=== PATIENT | female | born 1935 | race Caucasian/White ===

== ENCOUNTER 2016-10-09 10:43 | Inpatient (IN) | payer OTHER ==
[2016-10-09 13:32] LABS: URINE MICRO REVIEW NEEDED? NO; URINE SOURCE VOIDED
[2016-10-09 13:48] LABS: UR EPITHELIAL CELLS <10 /HPF (<10); URINE BACTERIA 2+ /HPF; URINE RBC TNTC /HPF (<10); URINE WBC TNTC /HPF (<10)
[2016-10-09 13:54] LABS: BILIRUBIN URINE NEGATIVE (NEGATIVE); BLOOD URINE LARGE (NEGATIVE); COLOR BROWN; GLUCOSE URINE NEGATIVE (NEGATIVE); LEUKOCYTES URINE LARGE (NEGATIVE); NITRITE URINE NEGATIVE (NEGATIVE); PH URINE 6.5; PROTEIN URINE 100 mg/dL (NEGATIVE); SP GRAVITY URINE 1.006; TURBIDITY URINE HAZY (CLEAR); UROBILINOGEN URINE NORMAL (NORMAL)
[2016-10-09 14:52] LABS: MANUAL DIFF NEEDED? NO
--- NOTE | 2016-10-09 14:52 | Diag Imaging Result Document ---
PROCEDURE NAME: CHEST-2 VIEWS - 10/09/2016 FRONTAL AND LATERAL CHEST, TWO VIEWS: FINDINGS: The lungs are hyperexpanded. The heart is not enlarged. The pulmonary vessels are small. Mild increased AP diameter to the chest. No pleural effusions. No pneumonia. Nodular density in the midleft lung. IMPRESSION: 1. I believe the patient has emphysema. No pneumonia. 2. Nodular opacity in the midleft lung which is nonspecific. CT or followup film is recommended.
[2016-10-09 15:00] LABS: BASO% 0.3 % (0.0-0.8); EOS# 0.03 X1000 (0.0-0.7); EOS% 0.3 % (0.0-10.0); HEMATOCRIT 36.9 % (37.0-47.0); HEMOGLOBIN 12.5 g/dL (12.0-16.0); IMM GRAN# 0.02 X1000 (0.0-0.04); IMM GRAN% 0.2 % (0.0-0.5); LYMPH# 1.87 X1000 (1.2-3.4); LYMPH% 19.5 % (20.5-51.1); MCH 30.5 PG (27-31); MCHC 33.9 g/dL (33-37); MONO# 0.72 X1000 (0.11-0.59); MONO% 7.5 % (1.7-9.3); NEUT% 72.2 % (42.2-75.2); PLT 226 X1000 (130-400)
--- NOTE | 2016-10-09 15:06 | EKG Report ---
Test Performed on : 10/09/2016 2:56:14 PM Test Reason : hematuria Blood Pressure : / mmHG Vent. Rate : 080 BPM Atrial Rate : 080 BPM P-R Int : 202 ms QRS Dur : 082 ms QT Int : 382 ms P-R-T Axes : 049 013 -07 degrees QTc Int : 440 ms Normal sinus rhythm. Nonspecific ST and T wave abnormality Abnormal ECG No previous ECGs available Confirmed by Randy CERVANTES, Kole Mcgee ([id number]) on 10/09/2016 5:23:41 PM
[2016-10-09 15:13] LABS: INR 1.03; PROTIME 10.9 Seconds (9.2-11.7); PTT 30.9 Seconds (22.0-36.0)
[2016-10-09 15:25] LABS: AGAP 15; ALKALINE PHOSPHATASE 159 U/L (32-104); BUN 8 mg/dL (8-22); CALCIUM 9.3 mg/dL (8.8-10.2); CHLORIDE 96 mmol/L (98-107); COSMO 273; GOT 25 U/L (10-30); GPT 18 U/L (10-36); POTASSIUM 4.1 mmol/L (3.5-5.1); SODIUM 137 mmol/L (136-145); TCO2 26 mmol/L (25-35); TOTAL BILIRUBIN 0.41 mg/dL (0.20-1.00); TOTAL PROTEIN 7.3 g/dL (6.3-8.3)
--- NOTE | 2016-10-09 15:33 | Diag Imaging Result Document ---
PROCEDURE NAME: ABDOMEN/PELVIS W/O CONTRAST - 10/09/2016 CT RENAL STONE SEARCH WITHOUT CONTRAST: A dose-reduction protocol was used. FINDINGS: There is no evidence of hydronephrosis or perinephric edema. There is no renal stone identified. There is mild haziness near the proximal left ureter but this likely relates to nearby vascular structures. There is a 2.1 cm relatively low-density lesion arising exophytically at the lower left kidney, possibly representing a cyst. There is no evidence of bowel obstruction. There is colonic diverticulosis which is most extensive at the sigmoid. There is no indication of diverticulitis. There is no free air. There are possibly faint gallstones or sludge in the dependent portion of the gallbladder. There is no pericholecystic inflammation seen. There are atherosclerotic calcifications noted. There are lumbar spine degenerative changes noted. IMPRESSION: 1. No evidence of renal stone or hydronephrosis. 2. 2.1 cm lesion at lower left kidney, possibly representing a cyst. Follow-up renal ultrasound is recommended. 3. Uncomplicated colonic diverticulosis. No bowel obstruction. No free air. 4. Possible faint gallstones or sludge in the dependent portion of the gallbladder. No pericholecystic inflammation.
--- NOTE | 2016-10-09 16:16 | CONSULTATION ---
DATE OF CONSULTATION: 10/09/2016 CONSULTING PHYSICIAN: Dr. Fraire. REASON FOR CONSULTATION: Gross hematuria. HISTORY OF PRESENT ILLNESS: An 81-year-old female who had presented with sudden onset of gross hematuria, suprapubic tenderness, left sided abdominal pain and mild radiation to the back. She denied fevers chills, nausea, or vomiting. She was seen by Dr. Fraire at the office and was told to come in to be admitted. She reports 1 similar episode in the past like that where she was told she had a "kidney infection." She reports she was not treated with antibiotics but cannot remember for sure. She denies unintentional weight loss, history of recurrent UTIs. PAST MEDICAL HISTORY: 1. Hypertension. 2. Hypothyroidism. 3. Vertigo. 4. GERD. 5. Mitral valve prolapse. 6. MGUS. PAST SURGICAL HISTORY: 1. Multiple skin cancer excisions. 2. Appendectomy. 3. Total hysterectomy. 4. Cystocele repair. 5. Rectocele repair. 6. Lower extremity surgery. ALLERGIES: No known drug allergies. HOME MEDICATIONS: Norvasc, Synthroid, aspirin, Antivert, Toprol-XL, omeprazole, multivitamin, vitamin D. SOCIAL HISTORY: She denies tobacco, alcohol or drug use. FAMILY HISTORY: She denies family history of malignancies. REVIEW OF SYSTEMS: Reviewed 12 systems and negative except as mentioned in HPI. PHYSICAL EXAMINATION: T 97.8 degrees, P 81, BP 134/54.General: No acute distress. Pleasant female. HEENT: Normocephalic, atraumatic. Cardiovascular: Regular rate and rhythm. Pulmonary: Bilateral breath sounds. Abdomen: Scaphoid. Nontender to palpation. No involuntary guarding. She has 2 ventral abdominal scars. : Bladder is nontender to palpation. Lymphatic: No groin lymphadenopathy. Dermatologic: No obvious skin rashes. Neurologic: Alert and oriented x3. Psychiatric: Appropriate mood and affect. PERTINENT LABORATORY DATA: White cell count of 10,000, hematocrit 37, creatinine of 0.5. Urinalysis is positive for blood, leukocytes, white cells and bacteria. IMAGES: None. ASSESSMENT: An 81-year-old female with gross hematuria who has obvious urinary tract infection and could have pyelonephritis given her pain. We discussed not completing full hematuria workup given that it is in the setting of infection. Given her radiation of pain to the left, I recommended obtaining a renal ultrasound. I did see the urine sample that she left in the bathroom and her urine was red but no significant clots at the time of observation. PLAN: 1. Agree with IV fluids and antibiotic treatment. 2. I will order renal ultrasound. Thank you for consultation.
--- NOTE | 2016-10-09 17:11 | HISTORY AND PHYSICAL ---
CHIEF COMPLAINT: Hematuria. HISTORY OF PRESENT ILLNESS: An 81-year-old white female patient was in her usual state of health 3 days ago when patient noticed some blood in the urine but it subsided and then again last night the patient noticed blood in the urine. Urine was red colored. It was getting much more darker progressively. This morning her urine was bloody. There was some blood clot. The patient came to my office. I evaluated the patient. Her urine had gross hematuria with some blood clot. Patient did have some suprapubic pain. She was also complaining of some flank pain. No high- grade fever or chills. She denied any nausea or vomiting. The patient had a similar episode a few years ago. At that time, she was told to have a kidney infection. Patient did not have workup done at that time. Because of her gross hematuria, pain I decided to admit the patient for further care. The patient denied any nosebleed, blood in the stool, gum bleeding, hemoptysis. No bleeding tendency. Denied any nausea or vomiting. No typical chest pain, palpitation, orthopnea, PND. No unusual cough, expectoration, hemoptysis. The patient does have at times vertigo. No runny nose, stuffy nose, sinus drainage. Denied any leg swelling. No joint swelling or redness. No heat or cold intolerance, unquantified weight loss. No focal numbness, tingling, weakness. No further history available at this time. ALLERGIES: No known drug allergy. HOME MEDICATION: Includes patient is on Norvasc, Toprol-XL, Synthroid, aspirin, Antivert, multivitamin, Prilosec. PAST MEDICAL HISTORY: Significant for hypertension, gastritis and reflux disease, hyperlipidemia, hypothyroidism, vertigo, mitral valve prolapse, monoclonal gammopathy. The patient had multiple skin cancer removed, appendectomy, total hysterectomy, cystocele repair, rectocele repair and surgery on lower extremities. SOCIAL HISTORY: Single. Denied alcohol or substance abuse. FAMILY HISTORY: Noncontributory. PHYSICAL EXAMINATION: GENERAL: Elderly white female patient in no acute distress. VITAL SIGNS: Blood pressure 134/54, pulse 81, respirations 16, temperature 97.8 degrees. SKIN: Normal turgor. No rash or petechiae. HEENT: Head atraumatic, normocephalic. [place] conjunctivae. Anicteric sclerae. Extraocular muscle movement normal. Fundus cannot be penetrated. Good oral hygiene. No tonsillopharyngeal congestion or exudate. Ears and nose benign. NECK: Supple. No JVD, thyromegaly or lymphadenopathy. CHEST: Bilateral good air entry present. No rales or rhonchi. CARDIOVASCULAR: S1 and S2 heard. No gallop or thrill. A 2/6 systolic murmur at the apex. ABDOMEN: Soft. No distention. Bowel sounds present. Mild suprapubic tenderness. No guarding or rigidity. EXTREMITIES: No cyanosis, clubbing. No acute DVT. LINE MAINTAINER SECTION: Alert, awake. Able to move all 4 limbs. LAB DATA: Hemoglobin 12.5, hematocrit 36.9, WBC count 9.61, platelet 226,000. PT/INR 1.03, PTT 30.9. Electrolytes were fairly benign. Alkaline phosphatase 159, blood sugar 105. Urinalysis did reveal large amount of blood, too numerous to count WBC and RBC, 2+ bacteria. We did a CT scan of the abdomen and pelvis without contrast which did reveal no evidence of renal stone or hydronephrosis. Possible renal cyst, uncomplicated colonic diverticulosis, possible faint gallstone or sludge in the dependent portion of the gallbladder, no evidence of cholecystitis. Her chest x-ray did reveal COPD, no pneumonia, nodular opacity in the mid left lung which is nonspecific. CT or followup film is recommended. CONSIDERATION: Gross hematuria. Urine did show possible urinary tract infection, possibility of hemorrhagic cystitis cannot be ruled out. Her other problems include hypertension, mitral valve prolapse, history of hyperlipidemia, vertigo, hypothyroidism. Patient does have chronic obstructive pulmonary disease by x-ray. Abnormal chest x-ray. PLAN: Admit the patient. IV hydration. Close observation. IV antibiotics. Overall plan discussed at length with the patient and her daughter and they are in agreement. The patient had renal ultrasound ordered by urologist and will follow those results. Her EKG reveals sinus rhythm, left atrial enlargement, ST-T wave changes in the anterolateral leads which could be nonspecific. Clinically, patient is asymptomatic.
[2016-10-09] MEDS: LEVAQUIN 750 MG/D5W 150 ML IV SCH (17:25)
[2016-10-09] MEDS: NS 1,000 ML IV SCH (17:26)
--- NOTE | 2016-10-09 18:07 | Diag Imaging Result Document ---
PROCEDURE NAME: US RENAL 2 (RETROPER) COMPLETE - 10/09/2016 BILATERAL RENAL ULTRASOUND: FINDINGS: The right kidney measures 9.6 x 3.1 x 4.3 cm in size. The left kidney measures 10.4 x 4.2 x 4.3 cm in size. There is no hydronephrosis identified. There is no renal stone identified. There is a 2.5 cm cystic structure at the lower left kidney. While and it is difficult to determine with certainty that this arises from the left kidney, this likely corresponds with the lesion seen on the earlier CT abdomen and pelvis, compatible with renal cyst. There is no solid- appearing renal mass identified. Images of the urinary bladder demonstrate no lesion. IMPRESSION: 1. A 2.5 cm left renal cyst. 2. No other visible abnormality. 3. No hydronephrosis.
[2016-10-09] MEDS: TOPROL XL PO SCH (21:55)
[2016-10-10 06:10] LABS: MANUAL DIFF NEEDED? NO
[2016-10-10 06:18] LABS: BASO% 0.5 % (0.0-0.8); EOS# 0.06 X1000 (0.0-0.7); EOS% 0.8 % (0.0-10.0); HEMATOCRIT 35.8 % (37.0-47.0); HEMOGLOBIN 12.1 g/dL (12.0-16.0); LYMPH% 29.8 % (20.5-51.1); MCH 30.5 PG (27-31); MCHC 33.8 g/dL (33-37); MCV 90.2 FL (81-99); MONO# 0.87 X1000 (0.11-0.59); MONO% 11.3 % (1.7-9.3); MPV 10.4 FL (7.4-10.4); NEUT% 57.6 % (42.2-75.2); PLT 224 X1000 (130-400); RBC 3.97 XMIL (4.2-5.4)
[2016-10-10 06:27] LABS: AGAP 14; ALBUMIN 3.9 g/dL (3.5-5.0); ALKALINE PHOSPHATASE 141 U/L (32-104); BUN 7 mg/dL (8-22); CALCIUM 8.9 mg/dL (8.8-10.2); CHLORIDE 97 mmol/L (98-107); COSMO 268; GOT 19 U/L (10-30); GPT 15 U/L (10-36); POTASSIUM 3.7 mmol/L (3.5-5.1); SODIUM 135 mmol/L (136-145); TCO2 24 mmol/L (25-35); TOTAL BILIRUBIN 0.47 mg/dL (0.20-1.00); TOTAL PROTEIN 6.9 g/dL (6.3-8.3)
[2016-10-10] MEDS: NS 1,000 ML IV SCH ×2 (06:56→22:58)
[2016-10-10] MEDS: ASPIRIN EC PO SCH (09:35)
[2016-10-10] MEDS: CENTRUM SILVER PO SCH (09:35)
[2016-10-10] MEDS: SYNTHROID PO SCH (09:35)
[2016-10-10] MEDS: TOPROL XL PO SCH ×2 (09:35→20:33)
[2016-10-10] MEDS: PRILOSEC PO SCH (09:35)
--- NOTE | 2016-10-10 09:37 | PROGRESS NOTE ---
DATE: 10/10/2016 SUBJECTIVE: Ms. Yee is doing better. Her urine is getting light red. She did have some left flank pain yesterday. No high-grade fever or chills. Denied any nausea or vomiting. No abdominal pain. No typical chest pain. The patient admitted with gross hematuria. Urine did show evidence of infection. CT scan and ultrasound results reviewed. OBJECTIVE: Vital signs noted. Neck supple. No JVD. Lungs: Bilateral good air entry present. CVS: S1 and S2 heard. Abdomen soft. No distention. Bowel sounds present. Extremities: No cyanosis, clubbing. No acute DVT. CONSIDERATION: Gross hematuria. Urinalysis results reviewed. Culture result is pending. Possibility of hemorrhagic cystitis cannot be ruled out. Her other problems include 1. Hypertension. 2. Hyperlipidemia. 3. History of mitral valve prolapse. The patient is on IV antibiotics. Urologist following patient with us. We will continue current treatment. Close observation. I will re-evaluate the patient tomorrow and then will make necessary recommendations.
[2016-10-10] MEDS: LEVAQUIN 750 MG/D5W 150 ML IV SCH (15:52)
[2016-10-10] MEDS ORDERED: TYLENOL PO PRN (20:54)
--- NOTE | 2016-10-11 08:23 | DISCHARGE SUMMARY ---
ADMISSION DATE: 10/09/2016 DISCHARGE DATE: FINAL DISCHARGE DIAGNOSES: 1. Hemorrhagic cystitis. 2. Hypertension. 3. Hyperlipidemia. 4. Hypothyroidism. 5. Osteoarthritis. 6. Vertigo. 7. Mitral valve prolapse. HISTORY OF PRESENT ILLNESS: Ms. Yee is an 81-year-old, white, female patient with multiple medical problems. Admitted with gross hematuria, pain in the hypogastric area, some pain in the flank. No high-grade fever or chills. The patient had similar episode in the past few years ago. I evaluated patient in my office because of gross hematuria, pain, her age. I decided to admit the patient for further care. HOSPITAL COURSE: Patient was treated with IV fluid, IV antibiotics. As her urine shows evidence of UTI, urology consult obtained. Dr. Carson evaluated patient. Her CT scan did not reveal any nephrolithiasis. No evidence of obstruction. There was 2.1 cm cyst on the left kidney, uncomplicated colonic diverticulosis, questionable faint gallstone or sludge. The patient underwent a renal ultrasound. It did reveal cyst on the left kidney. No other visible abnormality and no hydronephrosis. The patient is doing much better. Her urine is clear. No fever or chills. No abdominal pain. Eager to go home. PHYSICAL EXAMINATION: Vital Signs: Her vital signs noted. Patient is afebrile. Lungs: Clear. Heart: S1 and S2 heard. Abdomen: Soft, nontender. Bowel sounds present. Extremities: No cyanosis, clubbing. No acute DVT. DISINTEGRATOR FEEDER: Alert, awake. Able to move all 4 limbs. LAB DATA: CT scan and ultrasound as discussed. Urine culture grew E. coli which is sensitive to Levaquin. Electrolytes done yesterday fairly benign. Potassium was 3.7, BUN 7, creatinine 0.5. Alkaline phosphatase 141. CBC was fairly within acceptable range. Initial urine did reveal too numerous to count WBC and RBC. PLAN: Overall, patient received maximum benefit of hospitalization. I am going to discharge patient home on oral Levaquin for a few more days. We will see her back in my office in 5-7 days. Plan is to get outpatient cystoscopy to make sure no bladder lesions. Plan discussed with the patient. She is in agreement. Plenty of liquids orally. In case of more distress, call us back or go to the emergency room. Overall discharge condition satisfactory.
[2016-10-11] MEDS ORDERED: NORVASC PO SCH (09:00)
[2016-10-11] MEDS ORDERED: VITAMIN D PO SCH (09:00)
[2016-10-11] MEDS: NS 1,000 ML IV SCH (09:19)
[2016-10-11] MEDS: PRILOSEC PO SCH (09:22)
[2016-10-11] MEDS: TOPROL XL PO SCH (09:22)
[2016-10-11] MEDS: SYNTHROID PO SCH (09:22)
[2016-10-11] MEDS: ASPIRIN EC PO SCH (09:22)
[2016-10-11] MEDS: CENTRUM SILVER PO SCH (09:22)
[2016-10-11 09:36] VITALS: BP 124/61
== END 2016-10-11 11:27 | disposition home or self-care (01) | DRG 690 ==
LOC: 4N 10:43
PROVIDERS: ADMIT Internal Medicine; ATTEND Internal Medicine
DX: N30.91 Cystitis, unspecified with hematuria (principal); D47.2 Monoclonal gammopathy; I34.1 Nonrheumatic mitral (valve) prolapse; E03.9 Hypothyroidism, unspecified; M19.90 Unspecified osteoarthritis, unspecified site; E78.5 Hyperlipidemia, unspecified; I10 Essential (primary) hypertension; K21.9 Gastro-esophageal reflux disease without esophagitis; N28.1 Cyst of kidney, acquired; Z79.899 Other long term (current) drug therapy; Z79.82 Long term (current) use of aspirin; Z85.828 Personal history of other malignant neoplasm of skin
CPT/HCPCS: 71020; 74176; 76770; 80053; 81001; 83735; 85025; 85610; 85730; 86850; 86900; 86901; 87077; 87088; 87186; 93005; 93010; J7030